=== PATIENT | female | born 2000 | race Two or more races ===

== ENCOUNTER 2020-12-21 05:53 | Emergency (ER) | payer BC ==
[2020-12-21 07:03] VITALS: BP 123/86; PULSE 73; TEMP 98.2; BMI 22.6
== END 2020-12-21 06:30 | disposition home or self-care (01) ==
LOC: JER 05:53
DX: T16.1XXA Foreign body in right ear, initial encounter (principal)
CPT/HCPCS: 99283-25

== ENCOUNTER 2021-09-08 11:22 | Emergency (ER) | payer BC ==
[2021-09-08 11:39] VITALS: BMI 23.2
[2021-09-08] MEDS ORDERED: ONDANSETRON 4 MG/2 ML VIAL IVPUSH ONE (12:36)
[2021-09-08] MEDS ORDERED: SODIUM CHLORIDE 1,000 ML IV STA (12:36)
[2021-09-08] MEDS ORDERED: ACETAMINOPHEN 1000 MG/100 ML BAG IVPB ONE (12:36)
[2021-09-08] MEDS ORDERED: ONDANSETRON 4 MG/2 ML VIAL ONE (12:43)
[2021-09-08] MEDS ORDERED: ACETAMINOPHEN INJECTION 100 ML IVPB ONE (12:43)
[2021-09-08 14:28] LABS: BASO % 0.5 % (0-2.0); EOS % 0.2 % (0-4.5); HEMATOCRIT 35.5 % (32.4-45.2); HEMOGLOBIN 11.7 GM/dL (10.7-15.3); LYMPH % 8.3 % (8-40); MCH 23.4 pg (25.7-33.7); MCHC 33.1 g/dl (32.0-36.0); MEAN CELL VOLUME 70.8 fl (80-96); MEAN PLT VOLUME 7.8 fl (7.5-11.1); MONO % 7.3 % (3.8-10.2); NEUT % 83.7 % (42.8-82.8); PLATELET COUNT 285 10^3/uL (134-434); RBC 5.01 M/mm3 (3.60-5.2); RDW 14.5 % (11.6-15.6); WHITE BLOOD COUNT 7.6 K/mm3 (4.0-10.0)
[2021-09-08 14:30] LABS: INR 1.26 (0.83-1.09); PROTHROMBIN TIME (PATIENT) 14.5 SEC (9.7-13.0)
[2021-09-08 14:46] LABS: CALCIUM 8.8 mg/dL (8.5-10.1)
[2021-09-08 14:47] LABS: BLOOD UREA NITROGEN 10.3 mg/dL (7-18)
[2021-09-08 14:50] LABS: CREATININE 0.8 mg/dL (0.55-1.3)
[2021-09-08 14:51] LABS: BILIRUBIN,TOTAL 0.2 mg/dL (0.2-1); TOT PROT 7.6 g/dl (6.4-8.2)
[2021-09-08 15:10] LABS: EPI CELLS >36 /uL (0-25.1); HCG,QUALITATIVE URINE Negative; HYALINE CASTS 8 /uL (0-3.1); URINE APPEARANCE CLOUDY; URINE BACTERIA 1213 /uL (0-1359); URINE BILIRUBIN NEGATIVE (NEGATIVE); URINE COLOR DK YELLOW; URINE GLUCOSE (UA) NEGATIVE (NEGATIVE); URINE KETONE TRACE (NEGATIVE); URINE LEUK ESTERASE NEGATIVE (NEGATIVE); URINE NITRITE NEGATIVE (NEGATIVE); URINE PROTEIN 1+ (NEGATIVE); URINE RBC 21 /uL (0-23.9); URINE WBC 51 /uL (0-25.8)
[2021-09-08 15:57] VITALS: BP 110/61; PULSE 92; TEMP 99.4
[2021-09-09 21:06] LABS: SARS-CoV-2 NAA Not Detected (Not Detected)
== END 2021-09-08 15:58 | disposition home or self-care (01) ==
LOC: JER 11:22
PROC: 3E0333Z Introduction of Anti-inflammatory into Peripheral Vein, Percutaneous Approach (ICD-10-PCS; principal; 2021-09-08)
PROC: 3E033GC Introduction of Other Therapeutic Substance into Peripheral Vein, Percutaneous Approach (ICD-10-PCS; 2021-09-08)
PROC: 3E0337Z Introduction of Electrolytic and Water Balance Substance into Peripheral Vein, Percutaneous Approach (ICD-10-PCS; 2021-09-08)
DX: N10 Acute pyelonephritis (principal)
CPT/HCPCS: 36415; 74177-TC; 80053; 81003; 84703; 85025; 85610; 87086; 99285-25; C9803-CS; Q9967; U0003; U0005

== ENCOUNTER 2023-12-05 22:31 | Emergency (ER) | payer BC, OTHER ==
[2023-12-05 22:38] VITALS: BP 116/76; PULSE 94; RESP 18; TEMP 98.1; BMI 22.8
[2023-12-05] MEDS ORDERED: ACETAMINOPHEN 325 MG TABLET (FP) ONE (23:15)
[2023-12-05] MEDS: ACETAMINOPHEN 500 MG TABLET (FP) PO ONE (23:18)
== END 2023-12-06 01:39 | disposition home or self-care (01) ==
LOC: JER 22:31
DX: M25.521 Pain in right elbow (principal); R20.0 Anesthesia of skin; V21.41XA Electric (assisted) bicycle driver injured in collision with pedal cycle in traffic accident, initial encounter
CPT/HCPCS: 70450-TC; 73030-TC-RT-FY; 73070-TC-RT-FY; 73130-TC-RT-FY; 73562-TC-RT-FY; 99284-25